=== PATIENT | female | born 1980 | race Caucasian/White ===

== ENCOUNTER 2022-12-24 00:44 | Outpatient (CLI) | payer BC, SELFPAY ==
--- NOTE | 2022-12-24 07:45 | DI.MAMMO_ITS ---
Exam(s) US BREAST RT COMPLETE MG MAMMO DIAGNOSTIC BI EXAM: MG MAMMO DIAGNOSTIC BI CLINICAL HISTORY: lump at 2:00 R breast, 1x2cm,DIAGNOSTI, N63.10. COMPARISON: US US BREAST RT COMPLETE from 12/24/2022 TECHNIQUE: Craniocaudal and mediolateral oblique Full Field Digital Mammography views of the both br easts with Computer Aided Diagnosis followed by Tomosynthesis. Spot compression views of the right b reast were also performed. Complete right breast ultrasound. FINDINGS: Mammography/Tomosynthesis: Masses/Architectural Distortion: Left breast: None seen. Right breast: Spiculated mass with surroun d architectural distortion in the medial, central breast tissue measuring roughly 15 millimeters in d iameter. Microcalcifications: No suspicious pleomorphic-type are seen. Skin Thickening/Nipple Retraction: None. Right breast US: Cyst: 4 millimeters cysts noted inferior right breast Solid lesions: Irregular hypoechoic area of shadowing noted in the 1 o'clock position 2 cm from the n ipple peer. Difficult to measure due to irregular borders. Roughly 17 millimeters in size. No eunice tional suspicious lesion seen Ductal dilation: None. IMPRESSION: 1. Spiculated mass in the medial right breast highly suspicious for malignancy. 2. Unless there is more urgent need, follow-up screening mammography is recommended, as per [place] [employer] guidelines. 3. Findings discussed with the patient and Sherry Armstrong NP, referring provider, after completion o f the exam. BI-RADS Category 5 - Highly Suggestive of Malignancy: Biopsy recommended Breast Density - Category C - Heterogeneously dense Breast density category C or D implies that the patient has dense breast tissue. Dense breast tissue is very common and is not abnormal but dense breast tissue can make it harder to find cancer on a ma mmogram. Also, dense breast tissue may increase their breast cancer risk. This information about the result of the mammogram report was provided to the patient to raise their awareness. Use this report when you speak with the patient about their risks for breast cancer, which includes their family hist ory. At that time, you may recommend for more screening tests (Ultrasound or MRI) as they might be us eful based on their risk. A negative radiographic report should not delay biopsy if a dominant or clinically suspicious mass is present. Up to ten percent of cancers are not identified on mammography. A negative report may reinforce clinical impression. Adenosis and dense breasts may obscure an underlying neoplasm. False positive reports average 6 to 10%. Patient will receive a letter notifying them of these results.
== END 2022-12-24 01:04 ==
LOC: DI 00:44
PROVIDERS: Visit Provider Nurse Practitioner Women's Health
DX: N63.10 Unspecified lump in the right breast, unspecified quadrant (principal)
CPT/HCPCS: 76642; 77062; 77066; G0279

== ENCOUNTER 2023-04-02 09:26 | Outpatient (CLI) | payer BC, SELFPAY ==
[2023-04-02 09:16] LABS: Absolute Basophil Count 0.03 10^3/uL (0.0-0.2); Absolute Eosinophil Count 0.15 10^3/uL (0.0-0.7); Absolute Neutrophil Count 2.11 10^3/uL (1.2-6.7); Basophils % 0.8; Eosinophils % 4.1; HCT 27.2 % (36.0-46.0); Lymphocytes % 24.4; MCH 21.4 pg (27.0-33.0); MCHC 29.4 % (32.0-36.0); MCV 73 fL (80-95); MPV 9.2 fL (8.0-11.0); Monocytes % 13.6; Neutrophils % 57.1; Platelet Count 362 10^3/uL (130-400); RBC 3.74 10^6/uL (3.93-5.22); RDW 18.5 % (11.7-14.6); RDW-SD 48.7 fL; WBC 3.69 10^3/uL (4.4-10.8)
[2023-04-02 09:36] LABS: Anisocytosis 2+; Diff Comment RBC Morph Reviewed; Hypochromasia 1+; Microcytosis 1+
[2023-04-02 10:14] LABS: Iron 22 ug/dL (50-170); Total Iron Binding Capacity 406 ug/dL (250-450); Transferrin Sat 5 % (15-50)
[2023-04-02 10:27] LABS: Ferritin 7 ng/mL (8-252)
== END 2023-04-02 09:27 | disposition home or self-care (01) ==
PROVIDERS: Visit Provider Physician Assistant Medical
DX: C50.211 Malignant neoplasm of upper-inner quadrant of right female breast (principal); D64.9 Anemia, unspecified; Z17.0 Estrogen receptor positive status [ER+]
CPT/HCPCS: 36415; 82728; 83540; 83550; 85025

== ENCOUNTER 2023-08-12 03:09 | Outpatient (RCR) | payer OTHER, SELFPAY ==
[2023-08-12 08:59] LABS: Abs Immature Grans 0.01 10^3/uL (0.0-0.06); Absolute Basophil Count 0.01 10^3/uL (0.0-0.2); Absolute Eosinophil Count 0.07 10^3/uL (0.0-0.7); Absolute Lymphocyte Count 0.77 10^3/uL (1.2-3.4); Absolute Monocyte Count 0.58 10^3/uL (0.1-0.8); Absolute Neutrophil Count 3.64 10^3/uL (1.2-6.7); Basophils % 0.2; Eosinophils % 1.4; HCT 28.7 % (36.0-46.0); HGB 9.5 g/dL (11.2-15.7); Immature Grans % 0.2; Lymphocytes % 15.2; MCH 33.9 pg (27.0-33.0); MCHC 33.1 % (32.0-36.0); MCV 103 fL (80-95); MPV 9.9 fL (8.0-11.0); Monocytes % 11.4; Neutrophils % 71.6; Platelet Count 196 10^3/uL (130-400); RDW 21.2 % (11.7-14.6); RDW-SD 80.8 fL; WBC 5.08 10^3/uL (4.4-10.8)
[2023-08-12 09:12] LABS: ALT 33 U/L (14-59); AST 21 U/L (15-37); Albumin 3.3 g/dL (3.4-5.0); Alkaline Phosphatase 86 U/L (46-116); Anion Gap 8.9 mmol/L (3-11); Anisocytosis 2+; BUN 15 mg/dL (7-18); Bilirubin, Total 0.3 mg/dL (0.2-1.0); CO2 27.1 mmol/L (21.0-32.0); CREATININE 0.9 mg/dL (0.55-1.02); Calcium 8.3 mg/dL (8.5-10.1); Chloride 105 mmol/L (98-107); Diff Comment RBC Morph Reviewed; Estimated GFR 80.84 (mL/min/1.73m2); Glucose 120 mg/dL (74-106); Potassium 3.6 mmol/L (3.5-5.1); Sodium 141 mmol/L (136-145); Total Protein 6.6 g/dL (6.4-8.2)
[2023-08-12] MEDS: Normal Saline Flush 10 ML SYR IVP (09:47)
== END 2023-08-28 23:59 | disposition home or self-care (01) ==
LOC: INF 03:09
PROVIDERS: Visit Provider Internal Medicine Hematology & Oncology
DX: C50.211 Malignant neoplasm of upper-inner quadrant of right female breast (principal); Z17.0 Estrogen receptor positive status [ER+]; D64.9 Anemia, unspecified; Z45.2 Encounter for adjustment and management of vascular access device
CPT/HCPCS: 36591; 80053; 85025

== ENCOUNTER → 2023-08-27 00:20 | Outpatient (CLI) | payer OTHER, SELFPAY ==
--- NOTE | 2023-08-27 08:30 | DI.US_ITS ---
APPROVED REPORT EXAM: Comprehensive 2D, Doppler, and color-flow Echocardiogram Patient Location: Out-Patient Director Foundation: Clementine Oviedo RDCS ([place]) Indications: Stage II breast CA, s/p chemotherapy Other Information Study Quality: Good Conclusion Normal left ventricular wall thickness and chamber size. Ejection fraction is 55%. Wall motion is n ormal Normal right ventricular size and systolic function Both atria are normal in size There is no structural or hemodynamically significant valvular disease Estimated right ventricular systolic pressure is 20 mmHg Wall motion Left Ventricle The left ventricle is normal size. The left ventricular systolic function is normal. The left ventric ular ejection fraction is within the normal range. There is normal left ventricular wall thickness. T here is normal LV segmental wall motion. There is no ventricular septal defect visualized. LVEF is 55 %. Right Ventricle The right ventricle is normal size. The right ventricular systolic function is normal. Atria The left atrium size is normal. The right atrium size is normal. The interatrial septum is intact wit h no evidence for an atrial septal defect. Aortic Valve The aortic valve is normal in structure. Aortic valve is trileaflet. There is no aortic valvular sten osis. No aortic regurgitation is present. Mitral Valve The mitral valve is normal in structure. No evidence of mitral valve stenosis. Trace to mild mitral r egurgitation. Tricuspid Valve The tricuspid valve is normal in structure. There is no tricuspid valve stenosis. Trace tricuspid reg urgitation. The RVSP is 20.1 mmHg. Pulmonic Valve The pulmonary valve is normal in structure. There is no pulmonic valvular stenosis. Trace pulmonic r egurgitation. Great Vessels The aortic root is normal in size. The ascending aorta is normal in size. Aortic arch is normal in ca liber. IVC is normal in size and collapses >50% with inspiration. Pericardium There is no pericardial effusion. 2D Dimensions IVSD d PLAX 1.00 cm F: 0.6-1.0 Ao Root d 3.42 cm F: 2.7 - 3.3 LVPW d PLAX 1.00 cm F: 0.6 - 1.0 Ao Asc Diam d 3.10 cm F: 2.3 - 3.1 LVID d PLAX 4.77 cm F: 3.8 - 5.2 LVDs 3.44 cm F: 2.2 - 3.5 LV EF Teichholz 53.8 % FS 27.77 % LV EDV (Teich) 105.8 mL LV ESV (Teich) 48.9 mL M-Mode TAPSE 2.13 cm (M/F) >1.7 Auto EF LV EDV A4C 88.3 mL LV EDV A2C 103.2 mL LV EDV BP 95.3 mL LV ESV A4C 41.9 mL LV ESV A2C 48.1 mL LV ESV BP 45.5 mL LVEF(%) A4C 52.6 % LVEF(%) A2C 53.4 % LVEF(%) BP 52.2 % LV SV A4C 46.5 ml LV SV A2C 55.2 ml LV SV BP 49.7 ml LV CO A4C 4.1 L/min LV CO A2C 5.4 L/min LV CO BP 4.7 L/min HR A4C 88.46 BPM HR A2C 97.31 BPM LV EDV Index (BP) LV Strain Long Pk Overal Avg (s) 18.37 RV Strain Global Peak Long. Strain A4C 20.16 Global Peak Long. Strain A4C FW 23.29 LA Volume LA Length A4C 4.7 cm LA Length A2C 4.3 cm LA Area A4C s 16.81 cm2 LA Area A2C s 13.55 cm2 LA Vol A4C A-L 50.90 mL LA Vol A2C A-L 35.93 mL LA Vol Biplane A-L 44.6 mL LA Vol/BSA A4C A-L LA Vol/BSA A2C A-L LA Vol/BSA BP A-L 24.2 mL/m2 LA Vol A4C MOD 46.2 mL LA Vol A2C MOD 34.0 mL LA Vol BP MOD 41.1 mL RA Volume RA Area A4C 10.2 cm2 RA ESV A4C (A-L) 20.8mL RA Vol/BSA A4C A-L RA Length A4C 4.2 cm RA ESV A4C (MOD) 19.9mL LV Diastology MV E' medial 0.093 (>0.07 m/s) MV E Vmax 0.77 (0.4-1.3 m/s) MV E/E' MED 8.25 (<14) MV A Vmax 0.85 (0.4-1.3 m/s) MV E' lateral 0.159 (>0.1 m/s) E/A Ratio 0.9 MV E/E' LAT 4.84 (<14) MV E' Average 0.126 m/s MV E/E'(average) 6.10 Aortic Valve AoV Vmax 1.22 m/s LVOT Vmax 1.02 m/s AoV Peak Grad 6.0 mmHg LVOT Peak Grad 4.2 mmHg AoV Area (Vmax) 2.58 cm2 LVOT VTI 0.233 m AoV VTI 0.250 m LVOT Mean Grad 2.3 mmHg AoV Mean Herber. 0.86 m/s LVOT SV 72.06 mL AoV Mean Grad 3.4 mmHg LVOT Diam s 1.95 cm AoV Area (VTI) 2.89 cm2 Velocity Ratio 0.84 Mitral Valve MV DT 138 (160-240 msec) MV Vmax TIPS 0.84 m/s MV Mean Grad 1.8 (<2mmHg) MV VTI 0.163 m Pulmonary Valve PV Vmax 0.99 (0.5-1.5 m/s) RVOT Vmax 0.91 m/s PV Peak Grad 4.0 mmHg RVOT Peak Gr. 3.3 mmHg PV Mean Herber 0.72 m/s RVOT VTI 0.172 m PV Mean Grad 2.3 mmHg RVOT Mean Gr. 1.8 mmHg Tricuspid Valve RA Pressure 3.00 mmHg TR Vmax 2.07 m/s TV S' 0.15 m/s TR Peak Grad 17.1 mmHg RVSP (TR) 20.1 mmHg
== END ==
PROVIDERS: Visit Provider Internal Medicine Hematology & Oncology
DX: C50.919 Malignant neoplasm of unspecified site of unspecified female breast (principal); Z92.21 Personal history of antineoplastic chemotherapy
CPT/HCPCS: 93306

== ENCOUNTER 2023-09-23 04:23 | Outpatient (RCR) | payer OTHER, SELFPAY ==
[2023-09-02] MEDS: Normal Saline Flush 10 ML SYR IVP (09:35)
[2023-09-02 09:44] LABS: Absolute Eosinophil Count 0.37 10^3/uL (0.0-0.7); HCT 32.3 % (36.0-46.0); HGB 10.7 g/dL (11.2-15.7); MCH 34.4 pg (27.0-33.0); MCHC 33.1 % (32.0-36.0); MCV 104 fL (80-95); Platelet Count 218 10^3/uL (130-400); RBC 3.11 10^6/uL (3.93-5.22); RDW 13.7 % (11.7-14.6); RDW-SD 50.9 fL
[2023-09-02 09:57] LABS: ALT 31 U/L (14-59); AST 30 U/L (15-37); Albumin 3.5 g/dL (3.4-5.0); Alkaline Phosphatase 95 U/L (46-116); Anion Gap 9.6 mmol/L (3-11); BUN 12 mg/dL (7-18); Bilirubin, Total 0.4 mg/dL (0.2-1.0); CO2 28.4 mmol/L (21.0-32.0); CREATININE 0.9 mg/dL (0.55-1.02); Chloride 104 mmol/L (98-107); Estimated GFR 80.84 (mL/min/1.73m2); Glucose 97 mg/dL (74-106); Potassium 3.8 mmol/L (3.5-5.1); Sodium 142 mmol/L (136-145); Total Protein 6.8 g/dL (6.4-8.2)
[2023-09-02 10:02] LABS: Absolute Basophil Count 0.02 10^3/uL (0.0-0.2); Absolute Lymphocyte Count 0.46 10^3/uL (1.2-3.4); Absolute Monocyte Count 0.23 10^3/uL (0.1-0.8); Absolute Neutrophil Count 1.22 10^3/uL (1.2-6.7); Bands % 1; Diff Comment Manual Differential; RBC Morphology Normal
[2023-09-23] MEDS: Normal Saline Flush 10 ML SYR IVP (08:35)
[2023-09-23 08:53] LABS: Abs Immature Grans 0.02 10^3/uL (0.0-0.06); Absolute Basophil Count 0.02 10^3/uL (0.0-0.2); Absolute Eosinophil Count 0.39 10^3/uL (0.0-0.7); Absolute Lymphocyte Count 0.44 10^3/uL (1.2-3.4); Absolute Monocyte Count 0.46 10^3/uL (0.1-0.8); Absolute Neutrophil Count 2.76 10^3/uL (1.2-6.7); Basophils % 0.5; Eosinophils % 9.5; HCT 33.2 % (36.0-46.0); HGB 11.2 g/dL (11.2-15.7); Immature Grans % 0.5; Lymphocytes % 10.8; MCH 34.1 pg (27.0-33.0); MCHC 33.7 % (32.0-36.0); MCV 101 fL (80-95); MPV 9.5 fL (8.0-11.0); Monocytes % 11.2; Neutrophils % 67.5; Platelet Count 200 10^3/uL (130-400); RBC 3.28 10^6/uL (3.93-5.22); RDW 11.3 % (11.7-14.6); RDW-SD 42.3 fL; WBC 4.09 10^3/uL (4.4-10.8)
[2023-09-23 09:10] LABS: ALT 63 U/L (14-59); AST 52 U/L (15-37); Albumin 3.4 g/dL (3.4-5.0); Alkaline Phosphatase 94 U/L (46-116); Anion Gap 8.8 mmol/L (3-11); BUN 20 mg/dL (7-18); Bilirubin, Total 0.5 mg/dL (0.2-1.0); CO2 28.2 mmol/L (21.0-32.0); Calcium 8.7 mg/dL (8.5-10.1); Chloride 103 mmol/L (98-107); Estimated GFR 71.24 (mL/min/1.73m2); Glucose 103 mg/dL (74-106); Potassium 3.7 mmol/L (3.5-5.1); Sodium 140 mmol/L (136-145); Total Protein 6.9 g/dL (6.4-8.2)
== END 2023-09-28 23:59 | disposition home or self-care (01) ==
LOC: INF 04:23
PROVIDERS: Visit Provider Internal Medicine Hematology & Oncology
DX: C50.211 Malignant neoplasm of upper-inner quadrant of right female breast (principal); Z17.0 Estrogen receptor positive status [ER+]; Z45.2 Encounter for adjustment and management of vascular access device
CPT/HCPCS: 36591; 80053; 85025

== ENCOUNTER 2023-10-14 03:51 | Outpatient (RCR) | payer OTHER, SELFPAY ==
[2023-10-14] MEDS: Normal Saline Flush 10 ML SYR IVP (10:00)
[2023-10-14 10:04] LABS: Abs Immature Grans 0.02 10^3/uL (0.0-0.06); Absolute Basophil Count 0.01 10^3/uL (0.0-0.2); Absolute Eosinophil Count 0.25 10^3/uL (0.0-0.7); Absolute Lymphocyte Count 0.65 10^3/uL (1.2-3.4); Absolute Monocyte Count 0.48 10^3/uL (0.1-0.8); Absolute Neutrophil Count 3.51 10^3/uL (1.2-6.7); Basophils % 0.2; Eosinophils % 5.1; HCT 34.6 % (36.0-46.0); HGB 11.7 g/dL (11.2-15.7); Immature Grans % 0.4; Lymphocytes % 13.2; MCH 33.9 pg (27.0-33.0); MCHC 33.8 % (32.0-36.0); MCV 100 fL (80-95); MPV 9.2 fL (8.0-11.0); Monocytes % 9.8; Neutrophils % 71.3; Platelet Count 218 10^3/uL (130-400); RBC 3.45 10^6/uL (3.93-5.22); RDW 11.1 % (11.7-14.6); RDW-SD 40.6 fL; WBC 4.92 10^3/uL (4.4-10.8)
[2023-10-14 10:20] LABS: ALT 34 U/L (14-59); AST 26 U/L (15-37); Albumin 3.6 g/dL (3.4-5.0); Alkaline Phosphatase 108 U/L (46-116); BUN 19 mg/dL (7-18); Bilirubin, Total 0.4 mg/dL (0.2-1.0); Calcium 8.9 mg/dL (8.5-10.1); Chloride 103 mmol/L (98-107); Estimated GFR 71.24 (mL/min/1.73m2); Glucose 102 mg/dL (74-106); Potassium 3.7 mmol/L (3.5-5.1); Sodium 140 mmol/L (136-145); Total Protein 7.1 g/dL (6.4-8.2)
== END 2023-10-28 23:59 | disposition home or self-care (01) ==
LOC: INF 03:51
PROVIDERS: Visit Provider Internal Medicine Hematology & Oncology
DX: C50.211 Malignant neoplasm of upper-inner quadrant of right female breast (principal); Z17.0 Estrogen receptor positive status [ER+]; Z45.2 Encounter for adjustment and management of vascular access device
CPT/HCPCS: 36591; 80053; 85025

== ENCOUNTER 2023-11-25 01:06 | Outpatient (RCR) | payer OTHER, SELFPAY ==
[2023-11-04] MEDS: Normal Saline Flush 10 ML SYR IVP (09:11)
[2023-11-04 09:47] LABS: Abs Immature Grans 0.01 10^3/uL (0.0-0.06); Absolute Basophil Count 0.02 10^3/uL (0.0-0.2); Absolute Lymphocyte Count 0.66 10^3/uL (1.2-3.4); Absolute Monocyte Count 0.52 10^3/uL (0.1-0.8); Basophils % 0.4 %; Eosinophils % 3.8 %; HCT 34.9 % (36.0-46.0); HGB 11.7 g/dL (11.2-15.7); Immature Grans % 0.2 %; Lymphocytes % 12.4 %; MCH 32.7 pg (27.0-33.0); MCHC 33.5 % (32.0-36.0); MCV 98 fL (80-95); MPV 9.2 fL (8.0-11.0); Monocytes % 9.8 %; Neutrophils % 73.4 %; Platelet Count 238 10^3/uL (130-400); RBC 3.58 10^6/uL (3.93-5.22); RDW-SD 39.8 fL; WBC 5.31 10^3/uL (4.4-10.8)
[2023-11-04 10:01] LABS: ALT 26 U/L (14-59); AST 22 U/L (15-37); Albumin 3.3 g/dL (3.4-5.0); Alkaline Phosphatase 114 U/L (46-116); Anion Gap 7.3 mmol/L (3-11); BUN 21 mg/dL (7-18); Bilirubin, Total 0.3 mg/dL (0.2-1.0); CO2 28.7 mmol/L (21.0-32.0); CREATININE 0.8 mg/dL (0.55-1.02); Calcium 8.8 mg/dL (8.5-10.1); Chloride 102 mmol/L (98-107); Estimated GFR 92.54 (mL/min/1.73m2); Glucose 102 mg/dL (74-106); Potassium 3.7 mmol/L (3.5-5.1); Sodium 138 mmol/L (136-145); Total Protein 7.1 g/dL (6.4-8.2)
[2023-11-05 10:29] LABS: Estradiol <12 pg/mL (See Note)
[2023-11-25] MEDS: Normal Saline Flush 10 ML SYR IVP (09:00)
[2023-11-25 09:24] LABS: Abs Immature Grans 0.01 10^3/uL (0.0-0.06); Absolute Basophil Count 0.01 10^3/uL (0.0-0.2); Absolute Eosinophil Count 0.13 10^3/uL (0.0-0.7); Absolute Lymphocyte Count 0.58 10^3/uL (1.2-3.4); Absolute Monocyte Count 0.38 10^3/uL (0.1-0.8); Basophils % 0.2 %; Eosinophils % 2.9 %; HCT 35.8 % (36.0-46.0); HGB 12.1 g/dL (11.2-15.7); Immature Grans % 0.2 %; Lymphocytes % 13.2 %; MCH 32.2 pg (27.0-33.0); MCHC 33.8 % (32.0-36.0); MCV 95 fL (80-95); MPV 9.1 fL (8.0-11.0); Monocytes % 8.6 %; Neutrophils % 74.9 %; Platelet Count 238 10^3/uL (130-400); RBC 3.76 10^6/uL (3.93-5.22); RDW 11.6 % (11.7-14.6); RDW-SD 40.2 fL; WBC 4.41 10^3/uL (4.4-10.8)
[2023-11-25 09:45] LABS: ALT 27 U/L (14-59); AST 27 U/L (15-37); Albumin 3.4 g/dL (3.4-5.0); Alkaline Phosphatase 123 U/L (46-116); Anion Gap 7.4 mmol/L (3-11); BUN 16 mg/dL (7-18); Bilirubin, Total 0.5 mg/dL (0.2-1.0); CO2 28.6 mmol/L (21.0-32.0); Chloride 104 mmol/L (98-107); Glucose 104 mg/dL (74-106); Potassium 4.1 mmol/L (3.5-5.1); Sodium 140 mmol/L (136-145); Total Protein 7.1 g/dL (6.4-8.2)
== END 2023-11-28 23:59 | disposition home or self-care (01) ==
LOC: INF 01:06
PROVIDERS: Nurse Practitioner Family; Visit Provider Internal Medicine Hematology & Oncology
DX: C50.211 Malignant neoplasm of upper-inner quadrant of right female breast (principal); Z17.0 Estrogen receptor positive status [ER+]; E28.39 Other primary ovarian failure; Z45.2 Encounter for adjustment and management of vascular access device
CPT/HCPCS: 36591; 80053; 82670; 83001; 85025

== ENCOUNTER 2023-12-16 04:51 | Outpatient (RCR) | payer OTHER, SELFPAY ==
[2023-12-16] MEDS: Normal Saline Flush 10 ML SYR IVP (10:09)
[2023-12-16 10:28] LABS: Abs Immature Grans 0.01 10^3/uL (0.0-0.06); Absolute Basophil Count 0.02 10^3/uL (0.0-0.2); Absolute Eosinophil Count 0.08 10^3/uL (0.0-0.7); Absolute Lymphocyte Count 0.78 10^3/uL (1.2-3.4); Absolute Monocyte Count 0.42 10^3/uL (0.1-0.8); Absolute Neutrophil Count 2.89 10^3/uL (1.2-6.7); Basophils % 0.5 %; Eosinophils % 1.9 %; HCT 35.4 % (36.0-46.0); HGB 11.6 g/dL (11.2-15.7); Immature Grans % 0.2 %; Lymphocytes % 18.6 %; MCH 31.4 pg (27.0-33.0); MCHC 32.8 % (32.0-36.0); MCV 96 fL (80-95); MPV 9.2 fL (8.0-11.0); Neutrophils % 68.8 %; Platelet Count 235 10^3/uL (130-400); RDW 12.3 % (11.7-14.6); RDW-SD 43.5 fL
[2023-12-16 10:45] LABS: ALT 27 U/L (14-59); AST 23 U/L (15-37); Albumin 3.4 g/dL (3.4-5.0); Alkaline Phosphatase 128 U/L (46-116); BUN 17 mg/dL (7-18); Bilirubin, Total 0.5 mg/dL (0.2-1.0); Calcium 8.8 mg/dL (8.5-10.1); Chloride 105 mmol/L (98-107); Glucose 89 mg/dL (74-106); Potassium 3.8 mmol/L (3.5-5.1); Sodium 143 mmol/L (136-145)
== END 2023-12-28 23:59 | disposition home or self-care (01) ==
LOC: INF 04:51
PROVIDERS: Visit Provider Internal Medicine Hematology & Oncology
DX: C50.211 Malignant neoplasm of upper-inner quadrant of right female breast (principal); Z17.0 Estrogen receptor positive status [ER+]
CPT/HCPCS: 36591; 80053; 85025

== ENCOUNTER 2024-01-27 03:02 | Outpatient (RCR) | payer OTHER, SELFPAY ==
[2024-01-06] MEDS: Normal Saline Flush 10 ML SYR IVP (09:14)
[2024-01-06 09:20] LABS: Abs Immature Grans 0.01 10^3/uL (0.0-0.06); Absolute Basophil Count 0.02 10^3/uL (0.0-0.2); Absolute Eosinophil Count 0.09 10^3/uL (0.0-0.7); Absolute Lymphocyte Count 0.75 10^3/uL (1.2-3.4); Absolute Neutrophil Count 1.95 10^3/uL (1.2-6.7); Basophils % 0.6 %; Eosinophils % 2.7 %; HCT 36.9 % (36.0-46.0); HGB 12.4 g/dL (11.2-15.7); Immature Grans % 0.3 %; Lymphocytes % 22.6 %; MCH 31.8 pg (27.0-33.0); MCHC 33.6 % (32.0-36.0); MCV 95 fL (80-95); MPV 8.7 fL (8.0-11.0); Monocytes % 15.1 %; Neutrophils % 58.7 %; Platelet Count 243 10^3/uL (130-400); RDW 12.9 % (11.7-14.6); RDW-SD 44.6 fL; WBC 3.32 10^3/uL (4.4-10.8)
[2024-01-06 09:49] LABS: ALT 32 U/L (14-59); AST 24 U/L (15-37); Albumin 3.6 g/dL (3.4-5.0); Alkaline Phosphatase 129 U/L (46-116); Anion Gap 8.9 mmol/L (3-11); BUN 21 mg/dL (7-18); Bilirubin, Total 0.49 mg/dL (0.2-1.0); CO2 28.1 mmol/L (21.0-32.0); Calcium 9.1 mg/dL (8.5-10.1); Chloride 104 mmol/L (98-107); Glucose 84 mg/dL (74-106); Potassium 3.8 mmol/L (3.5-5.1); Sodium 141 mmol/L (136-145); Total Protein 7.4 g/dL (6.4-8.2)
== END 2024-01-28 23:59 | disposition home or self-care (01) ==
LOC: INF 03:02
PROVIDERS: PCP Nurse Practitioner Family; Visit Provider Internal Medicine Hematology & Oncology
DX: C50.211 Malignant neoplasm of upper-inner quadrant of right female breast (principal); Z17.0 Estrogen receptor positive status [ER+]; Z45.2 Encounter for adjustment and management of vascular access device
CPT/HCPCS: 36591; 80053; 85025

== ENCOUNTER → 2024-01-28 00:40 | Outpatient (CLI) | payer OTHER, SELFPAY ==
--- NOTE | 2024-01-28 12:30 | DI.US_ITS ---
APPROVED REPORT EXAM: Comprehensive 2D, Doppler, and color-flow Echocardiogram Patient Location: Out-Patient Senior Tax Specialist: Clementine Oviedo RDCS ([place]) Indications: S/P Cardiotoxic chemo, Immunotherapy infusion Other Information Study Quality: Good Conclusion Normal left ventricular wall thickness and chamber size. Ejection fraction is 58%. Wall motion is n ormal Normal right ventricular size and function Both atria are normal in size There are no structural valvular abnormalities There is trivial aortic regurgitation There is trace to mild mitral regurgitation Estimated right ventricular systolic pressure is 23 mmHg Wall motion Left Ventricle The left ventricle is normal size. The left ventricular systolic function is normal. The left ventric ular ejection fraction is within the normal range. GLS is 17.7%. There is normal left ventricular wal l thickness. There is normal LV segmental wall motion. There is no ventricular septal defect visualiz ed. LVEF is 58%. Right Ventricle The right ventricle is normal size. The right ventricular systolic function is normal. Atria The left atrium size is normal. The right atrium size is normal. The interatrial septum is intact wit h no evidence for an atrial septal defect. Aortic Valve The aortic valve is normal in structure. Aortic valve is trileaflet. There is no aortic valvular sten osis. Trivial aortic regurgitation. Mitral Valve The mitral valve is normal in structure. No evidence of mitral valve stenosis. Trace to mild mitral r egurgitation. Tricuspid Valve The tricuspid valve is normal in structure. There is no tricuspid valve stenosis. Trace to mild tricu spid regurgitation. The RVSP is 22.6_ mmHg. Pulmonic Valve The pulmonary valve is normal in structure. There is no pulmonic valvular stenosis. Trace pulmonic re gurgitation. Great Vessels The aortic root is normal in size. The ascending aorta is normal Aortic arch is normal in caliber. IV C is normal in size and collapses >50% with inspiration. Pericardium There is no pericardial effusion. 2D Dimensions IVSD d PLAX 0.90 cm F: 0.6-1.0 Ao Root d 3.32 cm F: 2.7 - 3.3 LVPW d PLAX 0.90 cm F: 0.6 - 1.0 Ao Asc Diam d 3.22 cm F: 2.3 - 3.1 LVID d PLAX 4.50 cm F: 3.8 - 5.2 LVDs 3.08 cm F: 2.2 - 3.5 LV EF Teichholz 59.0 % FS 31.08 % LV EDV (Teich) 90.7 mL LV ESV (Teich) 37.2 mL M-Mode TAPSE 2.32 cm (M/F) >1.7 Auto EF LV EDV A4C 90.9 mL LV EDV A2C 107.5 mL LV EDV BP 99.0 mL LV ESV A4C 38.3 mL LV ESV A2C 45.2 mL LV ESV BP 41.6 mL LVEF(%) A4C 57.9 % LVEF(%) A2C 58.0 % LVEF(%) BP 57.9 % LV SV A4C 52.6 ml LV SV A2C 62.3 ml LV SV BP 57.3 ml LV CO A4C 4.2 L/min LV CO A2C 4.9 L/min LV CO BP 4.6 L/min HR A4C 79.30 BPM HR A2C 79.30 BPM LV EDV Index (BP) LV Strain Long Pk Overal Avg (s) 17.70 LA Volume LA Length A4C 5.0 cm LA Length A2C 4.9 cm LA Area A4C s 15.51 cm2 LA Area A2C s 14.20 cm2 LA Vol A4C A-L 40.86 mL LA Vol A2C A-L 34.58 mL LA Vol Biplane A-L 37.8 mL LA Vol/BSA A4C A-L LA Vol/BSA A2C A-L LA Vol/BSA BP A-L 20.5 mL/m2 LA Vol A4C MOD 36.4 mL LA Vol A2C MOD 32.9 mL LA Vol BP MOD 34.6 mL RA Volume RA Area A4C 11.5 cm2 RA ESV A4C (A-L) 25.8mL RA Vol/BSA A4C A-L RA Length A4C 4.4 cm RA ESV A4C (MOD) 23.9mL LV Diastology MV E' medial 0.113 (>0.07 m/s) MV E Vmax 0.69 (0.4-1.3 m/s) MV E/E' MED 6.15 (<14) MV A Vmax 0.65 (0.4-1.3 m/s) MV E' lateral 0.165 (>0.1 m/s) E/A Ratio 1.1 MV E/E' LAT 4.21 (<14) MV E' Average 0.139 m/s MV E/E'(average) 5.00 Aortic Valve AoV Vmax 1.13 m/s LVOT Vmax 0.85 m/s AoV Peak Grad 5.1 mmHg LVOT Peak Grad 2.9 mmHg AoV Area (Vmax) 2.31 cm2 LVOT VTI 0.173 m AoV VTI 0.250 m LVOT Mean Grad 1.8 mmHg AoV Mean Herber. 0.82 m/s LVOT SV 53.08 mL AoV Mean Grad 3.0 mmHg LVOT Diam s 1.95 cm AoV Area (VTI) 2.12 cm2 AV Regurg Peak Gr. 5.12 mmHg Velocity Ratio 0.75 Mitral Valve MV DT 152 (160-240 msec) MV Vmax TIPS 0.74 m/s MV Mean Grad 1.0 (<2mmHg) MV VTI 0.200 m Pulmonary Valve PV Vmax 0.71 (0.5-1.5 m/s) RVOT Vmax 0.66 m/s PV Peak Grad 2.0 mmHg RVOT Peak Gr. 1.8 mmHg PV Mean Herber 0.55 m/s RVOT VTI 0.142 m PV Mean Grad 1.3 mmHg RVOT Mean Gr. 1.0 mmHg Tricuspid Valve RA Pressure 3.00 mmHg TR Vmax 2.21 m/s TV S' 0.13 m/s TR Peak Grad 19.5 mmHg RVSP (TR) 22.6 mmHg
== END ==
PROVIDERS: PCP Nurse Practitioner Family; Visit Provider Nurse Practitioner Family
DX: Z92.21 Personal history of antineoplastic chemotherapy (principal)
CPT/HCPCS: 93306

== ENCOUNTER 2024-02-17 01:46 | Outpatient (RCR) | payer OTHER, SELFPAY ==
[2024-01-30] MEDS: Normal Saline Flush 10 ML SYR IVP (12:17)
[2024-01-30 12:25] LABS: Abs Immature Grans 0.02 10^3/uL (0.0-0.06); Absolute Basophil Count 0.02 10^3/uL (0.0-0.2); Absolute Eosinophil Count 0.17 10^3/uL (0.0-0.7); Absolute Lymphocyte Count 0.76 10^3/uL (1.2-3.4); Absolute Monocyte Count 0.57 10^3/uL (0.1-0.8); Absolute Neutrophil Count 2.77 10^3/uL (1.2-6.7); Basophils % 0.5 %; Eosinophils % 3.9 %; HGB 11.6 g/dL (11.2-15.7); Immature Grans % 0.5 %; Lymphocytes % 17.6 %; MCH 31.5 pg (27.0-33.0); MCHC 33.1 % (32.0-36.0); MCV 95 fL (80-95); MPV 8.9 fL (8.0-11.0); Monocytes % 13.2 %; Neutrophils % 64.3 %; Platelet Count 254 10^3/uL (130-400); RBC 3.68 10^6/uL (3.93-5.22); RDW 12.5 % (11.7-14.6); WBC 4.31 10^3/uL (4.4-10.8)
[2024-01-30 12:47] LABS: ALT 30 U/L (14-59); AST 20 U/L (15-37); Albumin 3.5 g/dL (3.4-5.0); Alkaline Phosphatase 126 U/L (46-116); Anion Gap 6.7 mmol/L (3-11); BUN 25 mg/dL (7-18); CO2 31.3 mmol/L (21.0-32.0); CREATININE 0.9 mg/dL (0.55-1.02); Chloride 102 mmol/L (98-107); Estimated GFR 80.34 (mL/min/1.73m2); Glucose 124 mg/dL (74-106); Potassium 3.6 mmol/L (3.5-5.1); Sodium 140 mmol/L (136-145); Total Protein 7.2 g/dL (6.4-8.2)
[2024-01-30 12:49] LABS: Calculated LDL 168 mg/dL (<100); Cholesterol 275 mg/dL (<200); HDL Cholesterol 81 mg/dL (40-60); Triglyceride 131 mg/dL (<150)
[2024-02-17] MEDS: Normal Saline Flush 10 ML SYR IVP (09:18)
[2024-02-17 09:41] LABS: Abs Immature Grans 0.01 10^3/uL (0.0-0.06); Absolute Basophil Count 0.01 10^3/uL (0.0-0.2); Absolute Monocyte Count 0.53 10^3/uL (0.1-0.8); Absolute Neutrophil Count 3.08 10^3/uL (1.2-6.7); Basophils % 0.2 %; Eosinophils % 2.2 %; HCT 37.6 % (36.0-46.0); HGB 12.5 g/dL (11.2-15.7); Immature Grans % 0.2 %; Lymphocytes % 19.4 %; MCH 31.9 pg (27.0-33.0); MCHC 33.2 % (32.0-36.0); MCV 96 fL (80-95); MPV 9.1 fL (8.0-11.0); Monocytes % 11.4 %; Neutrophils % 66.6 %; Platelet Count 259 10^3/uL (130-400); RBC 3.92 10^6/uL (3.93-5.22); RDW 12.5 % (11.7-14.6); RDW-SD 43.8 fL; WBC 4.63 10^3/uL (4.4-10.8)
[2024-02-17 10:03] LABS: ALT 28 U/L (14-59); AST 22 U/L (15-37); Albumin 3.6 g/dL (3.4-5.0); Alkaline Phosphatase 120 U/L (46-116); Anion Gap 7.3 mmol/L (3-11); BUN 27 mg/dL (7-18); Bilirubin, Total 0.28 mg/dL (0.2-1.0); CO2 29.7 mmol/L (21.0-32.0); Calcium 9.3 mg/dL (8.5-10.1); Chloride 103 mmol/L (98-107); Glucose 93 mg/dL (74-106); Potassium 4.1 mmol/L (3.5-5.1); Sodium 140 mmol/L (136-145); Total Protein 7.3 g/dL (6.4-8.2)
== END 2024-02-28 23:59 | disposition home or self-care (01) ==
LOC: INF 01:46
PROVIDERS: PCP Nurse Practitioner Family; Visit Provider Internal Medicine Hematology & Oncology
DX: C50.211 Malignant neoplasm of upper-inner quadrant of right female breast (principal); Z17.0 Estrogen receptor positive status [ER+]; E78.5 Hyperlipidemia, unspecified
CPT/HCPCS: 36591; 80053; 80061; 85025

== ENCOUNTER 2024-03-09 01:41 | Outpatient (RCR) | payer OTHER, SELFPAY ==
[2024-03-09 10:12] LABS: Abs Immature Grans 0.01 10^3/uL (0.0-0.06); Absolute Basophil Count 0.02 10^3/uL (0.0-0.2); Absolute Eosinophil Count 0.06 10^3/uL (0.0-0.7); Absolute Lymphocyte Count 0.94 10^3/uL (1.2-3.4); Absolute Monocyte Count 0.51 10^3/uL (0.1-0.8); Basophils % 0.4 %; Eosinophils % 1.3 %; HGB 12.2 g/dL (11.2-15.7); Immature Grans % 0.2 %; Lymphocytes % 20.3 %; MCH 31.5 pg (27.0-33.0); MCV 96 fL (80-95); MPV 8.8 fL (8.0-11.0); Neutrophils % 66.8 %; Platelet Count 246 10^3/uL (130-400); RBC 3.87 10^6/uL (3.93-5.22); RDW-SD 42.2 fL; WBC 4.64 10^3/uL (4.4-10.8)
[2024-03-09 10:27] LABS: ALT 32 U/L (14-59); AST 22 U/L (15-37); Albumin 3.4 g/dL (3.4-5.0); Alkaline Phosphatase 113 U/L (46-116); Anion Gap 8.1 mmol/L (3-11); BUN 20 mg/dL (7-18); Bilirubin, Total 0.35 mg/dL (0.2-1.0); CO2 28.9 mmol/L (21.0-32.0); CREATININE 0.9 mg/dL (0.55-1.02); Calcium 8.9 mg/dL (8.5-10.1); Chloride 102 mmol/L (98-107); Estimated GFR 80.34 (mL/min/1.73m2); Glucose 113 mg/dL (74-106); Potassium 3.8 mmol/L (3.5-5.1); Sodium 139 mmol/L (136-145)
== END 2024-03-29 23:59 | disposition home or self-care (01) ==
LOC: INF 01:41
PROVIDERS: PCP Nurse Practitioner Family; Visit Provider Internal Medicine Hematology & Oncology
DX: C50.211 Malignant neoplasm of upper-inner quadrant of right female breast (principal); Z17.0 Estrogen receptor positive status [ER+]
CPT/HCPCS: 80053; 85025

== ENCOUNTER 2024-03-30 03:06 | Outpatient (RCR) | payer OTHER, SELFPAY ==
[2024-03-30 10:20] LABS: Abs Immature Grans 0.02 10^3/uL (0.0-0.06); Absolute Basophil Count 0.01 10^3/uL (0.0-0.2); Absolute Eosinophil Count 0.06 10^3/uL (0.0-0.7); Absolute Lymphocyte Count 0.96 10^3/uL (1.2-3.4); Absolute Monocyte Count 0.48 10^3/uL (0.1-0.8); Absolute Neutrophil Count 4.54 10^3/uL (1.2-6.7); Basophils % 0.2 %; HCT 36.9 % (36.0-46.0); HGB 12.2 g/dL (11.2-15.7); Immature Grans % 0.3 %; Lymphocytes % 15.8 %; MCH 31.7 pg (27.0-33.0); MCHC 33.1 % (32.0-36.0); MCV 96 fL (80-95); MPV 8.8 fL (8.0-11.0); Monocytes % 7.9 %; Neutrophils % 74.8 %; Platelet Count 242 10^3/uL (130-400); RBC 3.85 10^6/uL (3.93-5.22); RDW 12.1 % (11.7-14.6); RDW-SD 42.6 fL; WBC 6.07 10^3/uL (4.4-10.8)
[2024-03-30 10:37] LABS: ALT 27 U/L (14-59); AST 21 U/L (15-37); Albumin 3.4 g/dL (3.4-5.0); Alkaline Phosphatase 111 U/L (46-116); Anion Gap 6.9 mmol/L (3-11); BUN 24 mg/dL (7-18); Bilirubin, Total 0.32 mg/dL (0.2-1.0); CO2 30.1 mmol/L (21.0-32.0); Calcium 9.1 mg/dL (8.5-10.1); Chloride 101 mmol/L (98-107); Glucose 113 mg/dL (74-106); Potassium 3.6 mmol/L (3.5-5.1); Sodium 138 mmol/L (136-145)
[2024-03-30] MEDS: Normal Saline Flush 10 ML SYR IVP (10:49)
== END 2024-04-29 23:59 | disposition home or self-care (01) ==
LOC: INF 03:06
PROVIDERS: PCP Nurse Practitioner Family; Visit Provider Internal Medicine Hematology & Oncology
DX: C50.211 Malignant neoplasm of upper-inner quadrant of right female breast (principal); Z17.0 Estrogen receptor positive status [ER+]; Z45.2 Encounter for adjustment and management of vascular access device
CPT/HCPCS: 36591; 80053; 85025

== ENCOUNTER 2024-06-04 15:21 | Outpatient (CLI) | payer OTHER, SELFPAY ==
[2024-06-04 12:35] LABS: Absolute Basophil Count 0.01 10^3/uL (0.0-0.2); Absolute Eosinophil Count 0.04 10^3/uL (0.0-0.7); Absolute Lymphocyte Count 0.84 10^3/uL (1.2-3.4); Absolute Monocyte Count 0.47 10^3/uL (0.1-0.8); Absolute Neutrophil Count 2.31 10^3/uL (1.2-6.7); Basophils % 0.3 %; Eosinophils % 1.1 %; HCT 37.7 % (36.0-46.0); HGB 12.8 g/dL (11.2-15.7); Lymphocytes % 22.9 %; MCH 31.8 pg (27.0-33.0); MCV 94 fL (80-95); MPV 8.8 fL (8.0-11.0); Monocytes % 12.8 %; Neutrophils % 62.9 %; Platelet Count 237 10^3/uL (130-400); RBC 4.02 10^6/uL (3.93-5.22); RDW 12.3 % (11.7-14.6); RDW-SD 42.7 fL; WBC 3.67 10^3/uL (4.4-10.8)
[2024-06-04 13:15] LABS: ALT 27 U/L (14-59); AST 21 U/L (15-37); Albumin 3.7 g/dL (3.4-5.0); Alkaline Phosphatase 99 U/L (46-116); Anion Gap 9.2 mmol/L (3-11); BUN 23 mg/dL (7-18); Bilirubin, Total 0.35 mg/dL (0.2-1.0); CO2 29.8 mmol/L (21.0-32.0); CREATININE 0.9 mg/dL (0.55-1.02); Calcium 9.4 mg/dL (8.5-10.1); Chloride 101 mmol/L (98-107); Estimated GFR 80.34 (mL/min/1.73m2); Glucose 91 mg/dL (74-106); Potassium 3.4 mmol/L (3.5-5.1); Sodium 140 mmol/L (136-145); Total Protein 7.5 g/dL (6.4-8.2)
[2024-06-04 14:19] LABS: Vitamin B12 317 pg/mL (193-986); Vitamin D 25 Total 23.5 ng/mL (30-100)
[2024-06-04 22:18] LABS: Estradiol <12 pg/mL (See Note)
[2024-06-04 22:30] LABS: FSH 6.1 mIU/mL (See Note)
== END 2024-06-04 15:22 | disposition home or self-care (01) ==
LOC: LBO 15:21
PROVIDERS: Nurse Practitioner; PCP Nurse Practitioner Family; Visit Provider Nurse Practitioner Family
DX: E55.9 Vitamin D deficiency, unspecified (principal); R79.9 Abnormal finding of blood chemistry, unspecified; C50.211 Malignant neoplasm of upper-inner quadrant of right female breast; Z17.0 Estrogen receptor positive status [ER+]; R23.2 Flushing; T50.905A Adverse effect of unspecified drugs, medicaments and biological substances, initial encounter
CPT/HCPCS: 36415; 80053; 82306; 82607; 82670; 83001; 85025

== ENCOUNTER 2024-06-10 10:03 | Outpatient (CLI) | payer OTHER, SELFPAY ==
--- NOTE | 2024-06-10 | DI.RAD_ITS ---
Exam(s) XR HIP PELVIS ADULT BL EXAM: XR HIP PELVIS ADULT BL CLINICAL HISTORY: PAIN LT HIP JOINT, [id number]. TECHNIQUE: 2D digital imaging was performed. Three views. COMPARISON: No exams were available for comparison FINDINGS: BONES: No acute fracture is present. No bony destructive lesion is seen. JOINTS: No dislocation present. Hip joint spaces are maintained. No significant periarticular spurri ng. SI joints and pubic symphysis are unremarkable. SOFT TISSUE: Normal. IMPRESSION: Unremarkable radiographs of the bilateral hips. DATA REPOSITORY: RADIATION DOSE DELIVERED:
== END 2024-06-10 10:23 ==
LOC: DI 10:03
PROVIDERS: PCP Nurse Practitioner Family; Visit Provider Nurse Practitioner Family
DX: M25.552 Pain in left hip (principal); M25.551 Pain in right hip
CPT/HCPCS: 73521

== ENCOUNTER 2024-09-02 03:07 | Outpatient (CLI) | payer OTHER, SELFPAY ==
[2024-09-02 08:32] LABS: ALT 27 U/L (14-59); AST 27 U/L (15-37); Albumin 3.9 g/dL (3.4-5.0); Alkaline Phosphatase 94 U/L (46-116); BUN 24 mg/dL (7-18); Bilirubin, Total 0.52 mg/dL (0.2-1.0); CREATININE 1.1 mg/dL (0.55-1.02); Calcium 9.7 mg/dL (8.5-10.1); Chloride 104 mmol/L (98-107); Estimated GFR 63.15 (mL/min/1.73m2); Glucose 94 mg/dL (74-106); Potassium 4.3 mmol/L (3.5-5.1); Sodium 140 mmol/L (136-145); Total Protein 7.6 g/dL (6.4-8.2)
[2024-09-02 18:21] LABS: Estradiol <12 pg/mL (See Note)
[2024-09-02 18:38] LABS: FSH 5.6 mIU/mL (See Note)
== END 2024-09-02 03:08 | disposition home or self-care (01) ==
PROVIDERS: PCP Nurse Practitioner Family; Visit Provider Nurse Practitioner Family
DX: E83.9 Disorder of mineral metabolism, unspecified (principal); C50.211 Malignant neoplasm of upper-inner quadrant of right female breast; Z17.0 Estrogen receptor positive status [ER+]
CPT/HCPCS: 36415; 80053; 82670; 83001

== ENCOUNTER 2024-11-19 01:30 | Outpatient (CLI) | payer OTHER, SELFPAY ==
[2024-11-19 10:05] LABS: ALT 28 U/L (14-59); AST 24 U/L (15-37); Albumin 3.7 g/dL (3.4-5.0); Alkaline Phosphatase 88 U/L (46-116); Anion Gap 8.6 mmol/L (3-11); BUN 23 mg/dL (7-18); Bilirubin, Total 0.5 mg/dL (0.2-1.0); CO2 29.4 mmol/L (21.0-32.0); CREATININE 0.9 mg/dL (0.55-1.02); Calcium 9.2 mg/dL (8.5-10.1); Chloride 102 mmol/L (98-107); Estimated GFR 79.85 (mL/min/1.73m2); Glucose 86 mg/dL (74-106); Potassium 3.5 mmol/L (3.5-5.1); Sodium 140 mmol/L (136-145); Total Protein 7.1 g/dL (6.4-8.2)
[2024-11-19 18:42] LABS: Estradiol 15 pg/mL (See Note); FSH 5.6 mIU/mL (See Note)
== END 2024-11-19 01:31 | disposition home or self-care (01) ==
LOC: LBO 01:30
PROVIDERS: PCP Nurse Practitioner Family; Visit Provider Nurse Practitioner Family
DX: E28.39 Other primary ovarian failure (principal); C50.211 Malignant neoplasm of upper-inner quadrant of right female breast; Z17.0 Estrogen receptor positive status [ER+]
CPT/HCPCS: 36415; 80053; 82670; 83001

== ENCOUNTER 2025-03-04 05:16 | Outpatient (CLI) | payer BC, SELFPAY ==
[2025-03-04 11:04] LABS: ALT 33 U/L (14-59); AST 23 U/L (15-37); Albumin 3.7 g/dL (3.4-5.0); Alkaline Phosphatase 101 U/L (46-116); Anion Gap 8.4 mmol/L (3-11); BUN 28 mg/dL (7-18); Bilirubin, Total 0.4 mg/dL (0.2-1.0); CO2 29.6 mmol/L (21.0-32.0); Calcium 9.2 mg/dL (8.5-10.1); Chloride 99 mmol/L (98-107); Estimated GFR 70.36 (mL/min/1.73m2); Glucose 86 mg/dL (74-106); Potassium 3.4 mmol/L (3.5-5.1); Sodium 137 mmol/L (136-145); Total Protein 7.1 g/dL (6.4-8.2)
[2025-03-04 13:07] LABS: Abs Immature Grans 0.02 10^3/uL (0.0-0.06); HCT 38.4 % (36.0-46.0); HGB 12.9 g/dL (11.2-15.7); Immature Grans % 0.4 %; MCH 31.3 pg (27.0-33.0); MCHC 33.6 % (32.0-36.0); MCV 93 fL (80-95); MPV 9.7 fL (8.0-11.0); Platelet Count 242 10^3/uL (130-400); RBC 4.12 10^6/uL (3.93-5.22); RDW 12.0 % (11.7-14.6); RDW-SD 41.4 fL; WBC 5.18 10^3/uL (4.4-10.8)
[2025-03-05 01:41] LABS: FSH 4.2 mIU/mL (See Note)
== END 2025-03-04 05:17 | disposition home or self-care (01) ==
PROVIDERS: Internal Medicine Hematology & Oncology; PCP Nurse Practitioner Family; Visit Provider Nurse Practitioner Family
DX: C50.211 Malignant neoplasm of upper-inner quadrant of right female breast (principal); Z17.0 Estrogen receptor positive status [ER+]; E28.39 Other primary ovarian failure
CPT/HCPCS: 36415; 80053; 82670; 83001; 85025

== ENCOUNTER 2025-06-03 02:01 | Outpatient (CLI) | payer BC, SELFPAY ==
[2025-06-03 13:33] LABS: ALT 26 U/L (10-49); AST 24 U/L (<34); Albumin 4.3 g/dL (3.2-5.0); Alkaline Phosphatase 75 U/L (46-116); Anion Gap 7 mmol/L (3-11); BUN 27 mg/dL (9-23); Bilirubin, Total 0.50 mg/dL (0.2-1.2); CO2 30.0 mmol/L (20.0-31.0); Calcium 9.2 mg/dL (8.3-10.6); Chloride 105 mmol/L (98-107); Glucose 81 mg/dL (74-106); Potassium 3.8 mmol/L (3.5-5.1); Sodium 142 mmol/L (136-145); Total Protein 7.0 g/dL (5.7-8.2)
== END 2025-06-03 02:02 | disposition home or self-care (01) ==
LOC: LBO 02:01
PROVIDERS: PCP Nurse Practitioner Family; Visit Provider Nurse Practitioner Family
DX: C50.211 Malignant neoplasm of upper-inner quadrant of right female breast (principal); Z17.0 Estrogen receptor positive status [ER+]; E28.39 Other primary ovarian failure
CPT/HCPCS: 36415; 80053; 82670